=== PATIENT | female | born 1995 | race Caucasian/White ===

== ENCOUNTER 2024-08-21 11:15 | Outpatient (RCR) | payer BC, SELFPAY ==
[2024-08-21] MEDS: RHO(D) IMMUNE GLOBULIN 300 MCG/2 ML SYRINGE IM (16:36)
== END 2024-11-19 23:59 | disposition home or self-care (01) ==
LOC: ANHLAB 11:15
PROVIDERS: Visit Provider Obstetrics & Gynecology
DX: Z29.13 Encounter for prophylactic Rho(D) immune globulin (principal)
CPT/HCPCS: 36415; 85461; 86850; 86900; 86901; 90384; 96372; J2790

== ENCOUNTER 2024-10-30 08:36 | Outpatient (RCR) | payer BC, SELFPAY ==
[2024-08-16 14:57] VITALS: BP 109/60; PULSE 82
[2024-10-30 09:19] VITALS: BP 113/71; PULSE 87
== END 2024-11-11 07:55 | disposition home or self-care (01) ==
LOC: ANHOBOP 08:36
PROVIDERS: Visit Provider Obstetrics & Gynecology
DX: O36.8190 Decreased fetal movements, unspecified trimester, not applicable or unspecified (principal)
CPT/HCPCS: 59025

== ENCOUNTER 2024-11-09 04:58 | Inpatient (IN) | payer BC, SELFPAY ==
[2024-11-09] VITALS (180 sets, daily range): BP systolic 73–139; BP diastolic 36–117; PULSE 56–158; RESP 16–18; TEMP 36.2–37.8; O2SAT 77–100; BMI 29.1
--- NOTE | 2024-11-09 05:24 | PM.IMHP ---
H&P: HPI History of Present Illness Date/Time: 11/09/24 05:24 Chief Complaint: Induction of labor at term Narrative: 29-year-old 1 para whose last menstrual period was unknown EDC is 11/13/2024, confirmed by 8 week ultrasound presents at 30 weeks gestation for induction labor. has been uncomplicated. She did have an abnormal 1hours diabetic test and 2/4 abnormals under 3hour but her sugars have remained completely controlled. She is negative for group B strep she does have a rash Review of Systems Review of Systems: All systems reviewed & are unremarkable except as noted in HPI and below PMFSH Family History Family History Mother Lung collapse Sibling Lung collapse Grandparent Lung collapse Social History Social History Smoking status: Never smoker Substance use: never Spiritual care concerns: No Meds Home Medications and Allergies Home Medications ?Medication ?Instructions ?Recorded ?Confirmed ?Type vit no.95-ferrous 1 tablet PO DAILY 10/16/24 10/16/24 History fumarate 28 mg-folic acid 800 mcg tablet () Allergies Allergy/AdvReac Type Severity Reaction Status Date / Time No Known Allergies Allergy Verified 10/16/24 15:38 Vital Signs Vital Signs - 24 hr 11/09/24 05:17 11/09/24 05:22 Pulse Oximetry 99 99 Exam Const: General: cooperative, healthy appearing and comfortable Nutritional Appearance: average body habitus Orientation/consciousness: oriented to person, oriented to place and oriented to time HENMT: Head: normal to inspection Resp: Effort & Inspection: normal respiratory effort Cardio: Rate: regular rate Rhythm: regular rhythm Heart sounds: S1 normal heart sound present and S2 normal heart sound present GI: Inspection: normal to inspection (Soft gravid uterus) : External Female Exam: normal external appearance Speculum Exam - Vagina: normal appearance of the vagina Speculum Exam - Cervix: normal appearance of the cervix ( heart tones are reassuring) Assessment and Plan Assessment and plan (1) Term : Code(s): Z34.90 - Encounter for supervision of normal , unspecified, unspecified trimester Status: Acute Plan Medical induction of labor. Spontaneous vaginal delivery is expected. She is an epidural candidate will check her sugars as she had the abnormal 3hour GTT
[2024-11-09 05:44] LABS: Basophils Percent Auto 0.4 % (0.2-1.2); Eosinophils Absolute Auto 0.2 K/mm3 (0-0.3); Eosinophils Percent Auto 2.6 % (0-4.4); Hematocrit 34.2 % (37.0-47.0); Hemoglobin 10.5 g/dL (12.0-15.0); Immature Granulocyte Absolute 0.12 K/mm3 (0.00-0.031); Immature Granulocyte Percent A 1.3 % (0-0.5); Lymphocytes Absolute Auto 1.73 K/mm3 (0.9-3.2); Lymphocytes Percent Auto 19.3 % (18.3-44.2); Mean Corpuscular HGB Conc 30.7 g/dl (32-36); Mean Corpuscular Hemoglobin 23.5 pg (26-34); Mean Corpuscular Volume 76.5 fl (80-100); Mean Platelet Volume 9.1 fl (7.4-10.4); Monocytes Absolute Auto 0.6 K/mm3 (0.1-0.6); Neutrophils Absolute Auto 6.2 K/mm3 (1.3-6.7); Neutrophils Percent Auto 69.4 % (45.5-73.1); Platelet Count Result 338 k/mm3 (150-375); Red Blood Count 4.47 M/mm3 (4.2-5.4); Red Cell Distribution Width 16.6 % (11.5-14.5)
[2024-11-09 06:29] LABS: Syphilis IgG/IgM Antibody Negative (Negative)
[2024-11-09] MEDS: LACTATED RINGERS 1,000 ML 125 ML IV CONT ×3 (06:36→15:31)
[2024-11-09] MEDS: OXYTOCIN 30 UNITS/NS 500 ML 30 UNITS/500 ML BAG 6 UNITS IV CONT (06:36)
[2024-11-09 06:40] LABS: HIV 1/2 Ab P24 Ag Result Negative (Negative)
--- NOTE | 2024-11-09 06:46 | LDADM ---
This patient, Jody Vasquez, was admitted to Labor/Delivery/Recovery 108 on 11/09/24 at 04:58. Plans for labor, pain management and were discussed with patient. Patient/family oriented to hospital policies and general routines including ID bracelet, bed and alarms, visiting hours, pain management, procedures, bathroom and other care routines, personal items, smoking policy, room service/diet and guest tray routines, infant security routines, and visiting hours. Patient/Family are encouraged to report perceived risks to care and to ask questions if they do not understand what they are told or what they should do. See OBIX for further documentation.
[2024-11-09 06:47] LABS: Glucose Point of Care 82 mg/dl (65-105)
--- NOTE | 2024-11-09 08:47 | PM.OBPNLAB ---
Pain Control Date/time seen: 11/09/24 08:47 Pain control: tolerating well Pelvic Exam Dilation (cm): 2 Effacement (%): 50 station: -2 Amniotic membrane status: Leaking
--- NOTE | 2024-11-09 09:40 | WPDANESEPP ---
Anes - Eval Pre Procedure Procedure: Labor epidural Date/Time: 11/09/24 09:40 Surgeon: Deloris Ortiz Preop Diagnosis: Pain during labor Pre Op Diagnosis: IOL Patient Data Age: 29 Gender: F Height: 1.55 m Weight: 70 kg Last Vital Signs Temp 36.2 C L 11/09/24 06:43 Pulse 79 11/09/24 09:31 BP 125/39 L 11/09/24 09:31 Pulse Ox 100 11/09/24 06:40 O2 Del Method Room Air 11/09/24 06:45 Allergies Allergy/AdvReac Type Severity Reaction Status Date / Time No Known Allergies Allergy Verified 11/09/24 06:38 Home Medications ?Medication ?Instructions ?Recorded ?Confirmed ?Type vit no.95-ferrous 1 tablet PO DAILY 10/16/24 10/16/24 History fumarate 28 mg-folic acid 800 mcg tablet () Laboratory Tests 11/09/24 11/09/24 05:24 06:41 WBC 9.0 K/mm3 (4.5-10.0) RBC 4.47 M/mm3 (4.2-5.4) Hgb 10.5 L g/dL (12.0-15.0) Hct 34.2 L % (37.0-47.0) MCV 76.5 L fl (80-100) MCH 23.5 L pg (26-34) MCHC 30.7 L g/dl (32-36) RDW 16.6 H % (11.5-14.5) Plt Count 338 k/mm3 (150-375) MPV 9.1 fl (7.4-10.4) Immature Gran % (Auto) 1.3 H % (0-0.5) Neut % (Auto) 69.4 % (45.5-73.1) Lymph % (Auto) 19.3 % (18.3-44.2) [place] % (Auto) 7.0 % (2.6-8.5) Eos % (Auto) 2.6 % (0-4.4) Baso % (Auto) 0.4 % (0.2-1.2) Lymph # (Auto) 1.73 K/mm3 (0.9-3.2) [place] # (Auto) 0.6 K/mm3 (0.1-0.6) Eos # (Auto) 0.2 K/mm3 (0-0.3) Baso # (Auto) 0.0 K/mm3 (0.0-0.1) Abs Immat Gran (auto) 0.12 H K/mm3 (0.00-0.031) Absolute Neuts (auto) 6.2 K/mm3 (1.3-6.7) Absolute Nucleated RBC 0.000 K/mm3 (0.0-0.012) Nucleated RBC % 0.0 % (0.0-0.2) POC Capillary Glucose 82 mg/dl (65-105) Syphilis IgG/IgM Ab Negative (Negative) HIV 1&2 Ab/P24 Ag 4thGn Negative (Negative) Blood Type A Negative Antibody Screen Positive Antibody Identification Passive Due to RH Imm Glob Antigen Identification Not Reportable SONYA, IgG Interpret Not Performed SONYA, Poly Interpret Negative SONYA, Complement Interp Not Performed Patient hx anesthesia problems: none Family hx anesthesia problems: none Results Review: All pre-operative results and documents have been reviewed as part of the pre-operative evaluation. [facility] Family History Family History Mother Lung collapse Sibling Lung collapse Grandparent Lung collapse Social History Social History Smoking status: Never smoker Substance use: never Do You Feel Safe in your Home?: Yes Lack of Transportation: No Lack of Food: Never True Current Housing: I Have Housing Concerned About Future Housing: No Difficulty Paying Gas/Electric Bills: No Difficulty Paying for Meds: No Currently Unemployed: No Education: Bachelor's Degree Difficulty w/ Childcare or Family Care: No Spiritual care concerns: No Exam Day of Procedure 11/09/24 09:40 Patient weight: normal Heart: regular rate and rhythm Lungs: clear to auscultation Airway: Mallampati scale class II Neurological: alert and oriented
[2024-11-09 10:50] LABS: Glucose Point of Care 79 mg/dl (65-105)
[2024-11-09 12:56] LABS: Glucose Point of Care 64 mg/dl (65-105)
[2024-11-09 13:37] LABS: Glucose Point of Care 80 mg/dl (65-105)
--- NOTE | 2024-11-09 15:06 | PM.OBPNLAB ---
Pain Control Date/time seen: 11/09/24 15:06 Pain control: tolerating well and epidural Pelvic Exam Dilation (cm): 8 Effacement (%): 90 station: -1 Amniotic membrane status: Leaking
[2024-11-09] MEDS: ONDANSETRON INJ 4 MG/2 ML VIAL IV PUSH (15:08)
--- NOTE | 2024-11-09 17:20 | PM.OBPNLAB ---
Pain Control Date/time seen: 11/09/24 17:20 Pain control: tolerating well and epidural Pelvic Exam Dilation (cm): 10 Effacement (%): 100 station: 0 Amniotic membrane status: Leaking
--- NOTE | 2024-11-09 18:53 | PM.OBPRVD ---
OB - Vaginal Delivery Note Procedure Delivery date: 11/09/24 Events: Elective Induction of Labor and Gestational Diabetes Induction method: AROM Delivery augmentation: Pitocin Delivery monitor: External FHT and External Uterine Route of delivery: Episiotomy description: None Laceration Description: None Specimen: No Quantitative Blood Loss (ml): 62 Anesthesia type: Epidural Disposition: Floor Complications: No immediate complications Narrative: Patient was admitted for induction of labor term she had an abnormal 2/4 3hour GTT but her sugars were completely controlled with his diet. Rupture membranes performed in the morning she progressed on unremarkable 1st stage of labor and had epidural anesthesia placed when she was complete she pushed delivered the head spontaneously in the ANGELICA position. Anterior posterior shoulder delivered spontaneously. Cord clamped was cut. Infant placed in warmer given Apgars of 9 [id number] and 9 [id number]. Cord blood was drawn. Placenta delivered intact spontaneously. 20units of Pitocin placed IV to help firm the uterus. After inspecting the vagina no tears or lacerations were noted. QBL was 62cc. All sponge, needle, instrument counts was were correct. There were no immediate complications [place] Baby Date of : 11/09/24 Time of : 18:42 Gestational Age by Date: 38 gender: Female presentation: vertex position: Right Occiput Anterior Placenta delivery description: Spontaneous Cord Vessel Description: 3 Vessels score one minute: 9 score five minutes: 9
--- NOTE | 2024-11-09 18:55 | PM.DS ---
DS: Admitting Diagnosis Discharge Date 11/11/2024 Admitting Diagnosis Gestational diabetes/term DS: Discharge Diagnosis Discharge Diagnosis (1) Term : Code(s): Z34.90 - Encounter for supervision of normal , unspecified, unspecified trimester Status: Acute (2) Gestational diabetes: Code(s): O24.419 - Gestational diabetes mellitus in , unspecified control Status: Acute DS: Summary Hospital Course Reason for hospitalization: Patient was admitted on 11/09/2024 for induction of labor and underwent spontaneous vaginal delivery with epidural anesthesia Hospital Course: The patient's hospital course unremarkable. She remained afebrile. She was up, voiding without difficulty, eating regular diet, ambulating, and generally without complaints. Time Spent with Patient Time attestation: Total time spent providing and/or coordinating discharge services: Exam Const: General: cooperative, healthy appearing and comfortable Nutritional Appearance: average body habitus Orientation/consciousness: oriented to person Resp: Effort & Inspection: normal respiratory effort Cardio: Rate: regular rate Rhythm: regular rhythm Heart sounds: S1 normal heart sound present and S2 normal heart sound present GI: Inspection: normal to inspection (Uterus firm below the umbilicus) DS: Data Data Completed and Pending Labs on day of discharge: Labs from last 24 hours 11/09/24 11/09/24 11/09/24 13:34 12:53 10:40 WBC RBC Hgb Hct MCV MCH MCHC RDW Plt Count MPV Immature Gran % (Auto) Neut % (Auto) Lymph % (Auto) [place] % (Auto) Eos % (Auto) Baso % (Auto) Lymph # (Auto) [place] # (Auto) Eos # (Auto) Baso # (Auto) Abs Immat Gran (auto) Absolute Neuts (auto) Absolute Nucleated RBC Nucleated RBC % POC Capillary Glucose 80 64 L 79 Syphilis IgG/IgM Ab HIV 1&2 Ab/P24 Ag 4thGn Blood Type Antibody Screen Antibody Identification Antigen Identification SONYA, IgG Interpret SONYA, Poly Interpret SONYA, Complement Interp 11/09/24 11/09/24 06:41 05:24 WBC 9.0 RBC 4.47 Hgb 10.5 L Hct 34.2 L MCV 76.5 L MCH 23.5 L MCHC 30.7 L RDW 16.6 H Plt Count 338 MPV 9.1 Immature Gran % (Auto) 1.3 H Neut % (Auto) 69.4 Lymph % (Auto) 19.3 Star[place] % (Auto) 7.0 Eos % (Auto) 2.6 Baso % (Auto) 0.4 Lymph # (Auto) 1.73 [place] # (Auto) 0.6 Eos # (Auto) 0.2 Baso # (Auto) 0.0 Abs Immat Gran (auto) 0.12 H Absolute Neuts (auto) 6.2 Absolute Nucleated RBC 0.000 Nucleated RBC % 0.0 POC Capillary Glucose 82 Syphilis IgG/IgM Ab Negative HIV 1&2 Ab/P24 Ag 4thGn Negative Blood Type A Negative Antibody Screen Positive Antibody Identification Passive Due to RH Imm Glob Antigen Identification Not Reportable SONYA, IgG Interpret Not Performed SONYA, Poly Interpret Negative SONYA, Complement Interp Not Performed Discharge Plan Discharge Attending physician on discharge: Ej Campos Discharging Clinician: Ej Campos Patient Disposition: Home, Self-Care Activity: may shower, no straining and pelvic rest Diet: regular Discharge Instructions: Call or return if temperature above 100.4? F, increased abdominal pain, increased vaginal bleeding or any new problems. Education: Mom and Baby Guide Given to: Mother Follow-Up: Call your delivering provider's office for an appointment to be seen in: 6 Weeks Mom and baby should come to the [facility] for the follow-up appointment. Appointment Date/Time: November 13, 2024 at 8:00 am What to expect at your follow-up visit: Blood Pressure Check Call [phone] if you are unable to keep your appointment time. BREAST CARE: * Wear a snug supportive bra. * For engorgement discomfort: Breast Feeding: * Apply warm moist washcloths * Express milk as needed to relieve engorgement * Wear loose clothing Bottle Feeding: * May apply ice packs * For sore nipples: * Identify correct latch-on * Apply warm moist washcloths before and after nursing * Air dry nipples after nursing * May apply Lansinoh cream to nipples ABDOMINAL INCISION: (if applicable) * Allow incision to air dry * Do NOT use lotions for powders on your incision * When showering, allow soap and water to run over the incision, but do not wash incision EPISIOTOMY/PERINEAL CARE: * Until bleeding stops, use your tish bottle after urinating * Change your pad frequently throughout the day * You may take sitz baths several times a day (fill your bathtub with warm water and soak for 20 minutes.) Do NOT bathe in the water * No tub baths until seen by your physician - You may shower ACTIVITY: * Rest as much as possible. * Do not exercise or lift anything heavier than your baby (such as laundry or other children.) * Avoid stairs or driving as much as possible. * Do not put anything into the vagina. No douching, tampons, or sexual activity until seen by physician. NOTIFY PHYSICIAN IF YOU HAVE ANY QUESTIONS OR IF ANY OF THE FOLLOWING SYMPTOMS OCCUR: * If your episiotomy or incision becomes red, swollen, or more painful than what you have experienced in the hospital. * If your vaginal bleeding becomes foul smelling. * If your vaginal bleeding becomes more heavy than a period or if your bleeding changes from pink to bright red. However, you may pass an occasional walnut-sized clot once or twice for the first week . * If you experience a sharp, shooting pain in you calves. * If you discover a hard, reddened area on your breast or if you experience flu-like symptoms. DIET: * Eat regular, well-balanced meals. * Drink plenty of fluids daily. If , drink to thirst. Patient Language: French Stand Alone Forms: General Discharge Information Follow-up/Referrals: Ej Campos MD [Physician] - 6 Weeks Discharge Medications: New ibuprofen 600 mg tablet 600 mg PO Q6H PRN (Reason: cramps) Qty: 30 0RF sertraline 50 mg tablet 25 mg PO DAILY Qty: 30 2RF Continued PNV cmb#95-ferrous fumarate-FA [] 28 mg iron- 800 mcg tablet 1 tablet PO DAILY Date of admission: 11/09/24 04:58 Primary Care Provider: PHYSICIAN,BOOKING MANAGER Admitting Provider: Ej Campos Attending physician on admission: Ej Campos Condition: Stable
[2024-11-09] MEDS: OXYTOCIN 30 UNITS/NS 500 ML 30 UNITS/500 ML BAG 125 UNITS IV CONT (19:32)
--- NOTE | 2024-11-09 21:27 | OBPPTRN ---
Patient transferred to post room #285 via wheelchair. Support person present. Oriented to unit, room, information board, rooming in, admission packet and security measures. Patient verbalizes understanding.
[2024-11-09] MEDS: IBUPROFEN 600 MG TABLET PO (21:45)
[2024-11-09] MEDS: DIBUCAINE 1% OINTMENT 30 GM TUBE 1 APPLIC TOPICAL (21:45)
[2024-11-09] MEDS: ACETAMINOPHEN 325 MG TABLET 650 MG PO (21:45)
[2024-11-10] MEDS: HYDROcodone/acetaminophen (*CRX) 5-325 MG TABLET 1 TAB PO ×3 (00:15→08:50)
[2024-11-10 01:07] VITALS: BP 97/54; PULSE 62; RESP 18; TEMP 36.2; O2SAT 95
[2024-11-10 05:39] LABS: Hemoglobin 10.4 g/dL (12.0-15.0)
[2024-11-10 07:45] VITALS: BP 107/62; PULSE 74; RESP 16; TEMP 36.6; O2SAT 97
--- NOTE | 2024-11-10 07:45 | PM.OBPNVD ---
OB - PN: Subj Subjective Date/time seen: 11/10/24 07:45 Patient comments: no complaints, pain well controlled and tolerating diet baby status: doing well OB - PN: Obj Data Labs 11/10/24 04:27 Labs: Laboratory Results - last 24 hr 11/09/24 11/09/24 11/09/24 05:24 10:40 12:53 Hgb Hct POC Capillary Glucose 79 64 L Antibody Identification Passive Due to RH Imm Glob Antigen Identification Not Reportable SONYA, IgG Interpret Not Performed SONYA, Poly Interpret Negative SONYA, Complement Interp Not Performed 11/09/24 11/10/24 13:34 04:27 Hgb 10.4 L Hct 34.0 L POC Capillary Glucose 80 Antibody Identification Antigen Identification SONYA, IgG Interpret SONYA, Poly Interpret SONYA, Complement Interp OB - PN A/P Assessment and Plan (1) Term : Code(s): Z34.90 - Encounter for supervision of normal , unspecified, unspecified trimester Status: Acute (2) Gestational diabetes: Code(s): O24.419 - Gestational diabetes mellitus in , unspecified control Status: Acute Plan Comments: routine care Time Spent With Patient Time: Total time spent is greater than 50% in coordination of care (as documented) at patient's floor/unit and/or counseling patient: Exam Const: General: cooperative, healthy appearing and comfortable Nutritional Appearance: average body habitus Orientation/consciousness: oriented to person, oriented to place and oriented to time HENMT: Head: normal to inspection Resp: Effort & Inspection: normal respiratory effort Cardio: Rate: regular rate Rhythm: regular rhythm Heart sounds: S1 normal heart sound present and S2 normal heart sound present GI: Inspection: normal to inspection (fundus firm)
[2024-11-10] MEDS: POLYSACCHARIDE IRON COMPLEX 150 MG CAPSULE PO (08:49)
--- NOTE | 2024-11-10 09:53 | WPDANESPN ---
Anes - Prog Note Post-Op Date/Time: 11/10/24 09:53 Cardiovascular status: normal Respiratory status: normal Airway patency: baseline Mental status: baseline Post-Op hydration status: normal Vital Signs: Last Vital Signs Temp 36.6 C 11/10/24 07:45 Pulse 74 11/10/24 07:45 Resp 16 11/10/24 07:45 BP 107/62 11/10/24 07:45 Pulse Ox 97 11/10/24 07:45 O2 Del Method Room Air 11/09/24 06:45 Pain Score (VAS): 2 I/O: Intake & Output 11/09/24 11/10/24 11/10/24 23:59 07:59 15:59 Intake Total 500 550 Output Total 162 2000 Balance 338 -7240 Laboratory Tests 11/10/24 04:27 11/09/24 11/09/24 11/09/24 10:40 12:53 13:34 Hgb Hct POC Capillary Glucose 79 64 L 80 11/10/24 04:27 Hgb 10.4 L Hct 34.0 L POC Capillary Glucose Post-procedural complaints: none Patient Feedback: Patient satisfied with anesthetic care.
[2024-11-10 11:55] VITALS: BP 104/60; PULSE 82; RESP 16; TEMP 36.2; O2SAT 98
[2024-11-10] MEDS: BENZOCAINE 20% AER SPR (*SP) 56 GM CAN 1 SPRAY TOPICAL (15:30)
[2024-11-10] MEDS: WITCH HAZEL 40 PADS 1 PAD TOPICAL (17:21)
[2024-11-10 19:30] VITALS: BP 110/66; PULSE 79; RESP 18; TEMP 36.6; O2SAT 100
--- NOTE | 2024-11-10 19:42 | PC.NURSE ---
0820 Introductions were made, then consulted with patient to assess needs related to . Discussed with mother her?plans to feed?her infant and the?experience so far. Per mother she bottle fed all night due to being in pain, she would like to pump and bottle feed, her is going to go get her own personal breast pump to use. She will call out when she is ready to have it set up. Resources provided for inpatient and outpatient services with the feeding sheet, mom/baby guide and name written on the communication board. Mother voiced understanding of information and will call if there is a request for assistance. Reported to the Primary RN. [id number] RN and primary RN in room, mother would like to see if baby will breast feed. Baby was able to latch off and on to her left breast in both cross cradle and football positions, but could not maintain latch. Mother attempted for about 15 mins and then decided to give a bottle and use her breast pump. Primary RN gave instructions on cleaning, care, usage, that there should be no pain, pumping schedule for milk production, collection, and storage of human milk. Patient was assessed for correct placement, flange size, to pump for comfort and nipple stretching/stimulation for adequate milk production every 3 hours (8 times in 24 hours) 1-2 times at night. Parents are encouraged to record the pumping schedule on the feeding sheet.?Mother voiced understanding of the education shared along with mom/baby guide and the pump measurement, flange fit handout for additional resource information. Reported to the RN.
[2024-11-10] MEDS: IBUPROFEN SUSPENSION 200 MG/10 ML UDC 600 MG PO (21:55)
[2024-11-10] MEDS: ACETAMINOPHEN ELIXIR 325 MG/10.15 ML UDC 650 MG PO (21:55)
[2024-11-11 04:36] LABS: Glucose Point of Care 65 mg/dl (65-105)
--- NOTE | 2024-11-11 11:03 | PC.NURSE ---
Consulted with mother concerning needs and she shared that she is only going to be pumping an bottle feeding. Mother is feeding appropriately for growth of infant and understands stimulating infant to eat if needed. has had appropriate feedings in the last 24 hours meets the outcomes for weight, output, blood sugar and jaundice at this time. Reinforced understanding of milk production, transition of milk, signs of adequate intake, transition of stool, prevention/relief of engorgement, plugged ducts, mastitis, watching for feeding cues, community resources, and when to call a provider using the resource of the feeding sheet along with the mom and baby guide. Mother voiced understanding of the information shared, is confident to continue effectively feed her infant at home, when to call for assistance, denies any additional assistance or education at this time. Reported to the Primary RN.
--- NOTE | 2024-11-11 11:33 | PM.OBPNVD ---
OB - PN: Subj Subjective Date/time seen: 11/11/24 11:33 Narrative: Pain OK. Feels sad / anxious, no suicidal or homicidal ideation. Has used SSRI in past. . Would like to go home. OB - PN: Obj Data Labs 11/10/24 04:27 Labs: Laboratory Results - last 24 hr 11/09/24 15:27 POC Capillary Glucose 65 OB - PN A/P Plan Comments: A: PPD#2, doing well. P: Start sertraline 50 mg po daily. Reviewed instructions / precautions, risks / benefits. Home to f/u 6 weeks. Exam Psych: Other: AVSS ABD soft, nontender, fundus firm EXT nontender
[2024-11-13 08:29] VITALS: BP 130/73; PULSE 78; RESP 18; TEMP 37.2; O2SAT 100
== END 2024-11-11 15:02 | disposition home or self-care (01) | DRG 807 ==
LOC: ANHLDR 18:58 → ANHOB2 11-10 12:52 → ANHLDR 11-14 08:50 → ANHOB2 11-14 08:50
PROVIDERS: Admitting Provider Obstetrics & Gynecology; Visit Provider Obstetrics & Gynecology
DX: O24.429 Gestational diabetes mellitus in childbirth, unspecified control (principal); Z37.0 Single live birth; Z3A.39 39 weeks gestation of pregnancy
CPT/HCPCS: 36415; 82948; 85014; 85018; 85025; 86593; 86703; 86850; 86880; 86900; 86901; 86902; A9270; G0432; J2405; J2590; J2795; J7120